=== PATIENT | male | born 1985 | race Caucasian/White ===

== ENCOUNTER 2022-12-20 18:39 | Emergency (ER) | payer OTHER ==
[2022-12-20 18:47] VITALS: BP 125/86; O2SAT 98
--- NOTE | 2022-12-20 18:58 | ED Physician Documentation ---
PD HPI ABD PAIN - Stated complaint Stated Complaint: ABD PX - Chief complaint Chief Complaint: Abd Pain - History obtained from History obtained from: Patient - Additional information Additional information: For the last few weeks or maybe even a month or so he has had an intermittent pain in the left lower quadrant associated with a palpable lump that he is able to push back in. He does not seem to notice it more in any particular position or when lifting. It is not present at this time. He had normal bowel movements. No nausea or vomiting. No history of abdominal surgeries. Only significant past medical history is chest tube for spontaneous pneumothorax. PD PAST MEDICAL HISTORY - Present Medications Home Medications: Ambulatory Orders Medication Instructions Recorded Confirmed Lisdexamfetamine Dimesylate 40 mg PO DAILY 12/20/22 12/20/22 [Vyvanse] buPROPion HCL [Wellbutrin Xl] 300 mg PO DAILY 12/20/22 12/20/22 lamoTRIgine [LaMICtal] 200 mg PO DAILY 12/20/22 12/20/22 - Allergies Allergies/Adverse Reactions: Allergies Allergy/AdvReac Type Severity Reaction Status Date / Time Penicillins Allergy Anaphylaxis Verified 12/20/22 18:47 PD ED PE NORMAL - Vitals Vital signs reviewed: Yes - General General: Alert and oriented X 3, No acute distress - Abdomen Abdomen: Normal bowel sounds, Soft, Non tender, Other (He points to the left groin as the site of the lump although it is not present at this time. I am unable to elicit any hernia mass with position changes or coughing or Valsalva. He is nontender and asymptomatic now.) - Neuro Neuro: Alert and oriented X 3, Normal speech Results - Vitals Vitals: Vital Signs - 24 hr 12/20/22 18:44 Temperature 36.1 C L Heart Rate 88 Respiratory 20 Rate Blood Pressure 125/86 H O2 Saturation 98 PD Medical Decision Making - ED course ED course: He presents with symptomatology consistent with hernia, although I am not able to recreate it at this time he is asymptomatic at this juncture. I offered CT scanning to clarify the diagnosis but he feels more comfortable knowing the presumptive diagnosis and will follow-up with the surgeon. Departure - Departure Disposition: 01 Home, Self Care Clinical Impression: Abdominal pain Condition: Good Record reviewed to determine appropriate education?: Yes Instructions: Hernia Surg Repair, Hernia How Develops Follow-Up: [facility] [Provider Group] Comments: As discussed, based on your symptoms I suspect you have an abdominal wall hernia. Since its not out at this time no urgent intervention is needed but it is very reasonable to follow-up with one of our surgeons for further evaluation and treatment. If the bump pops out and stays out and you cannot massage it back in please return immediately for reevaluation or anytime for new or worsening symptoms.
== END 2022-12-20 19:03 | disposition home or self-care (01) ==
LOC: ED 18:39
DX: R10.32 Left lower quadrant pain (principal)
CPT/HCPCS: 99282; 99283